=== PATIENT | male | born 1965 | race Caucasian/White ===

== ENCOUNTER 2017-12-11 22:05 | Emergency (ER) | payer BC ==
[~2017-12-11] VITALS: Ht 170.2 cm; Wt 99.8 kg
[2017-12-11 22:10] VITALS: BP 148/78
[2017-12-11] MEDS ORDERED: AUGMENTIN 500-1 EACH ORAL (22:26)
[2017-12-11 22:29] VITALS: BP 138/80
[2017-12-11 22:30] VITALS: BP 138/80
--- NOTE | 2017-12-12 02:36 | Emergency Room Report ---
History of Present Illness General Chief Complaint: Skin Rash/Abscess Source: Patient Present Illness HPI 52-year-old male presents ED complaining of redness and pain to his left middle toe. [place]. Denies any injury. Pain is throbbing, 5 out of 10, nonradiating. Denies any fevers or chills. Denies any discharge. No other aggravating relieving factors. Denies any other associated symptoms Allergies: Coded Allergies: SULFA (SULFONAMIDE ANTIBIOTICS) (Verified Allergy, Unknown, 12/11/17) Patient History Past Medical History: DM Past Surgical History: none Pertinent Family History: none Social History: Denies: smoking, alcohol use, drug use Immunizations: UTD Reviewed Nursing Documentation: PMH: Agreed; PSxH: Agreed Nursing Documentation-PMH Past Medical History: No History, Except For Hx Hypertension: Yes Hx Diabetes: Yes - Pre-Diabetic Review of Systems All Other Systems: negative except mentioned in HPI Physical Exam Vital Signs Date Time Temp Pulse Resp B/P (MAP) Pulse Ox O2 Delivery O2 Flow Rate FiO2 12/11/17 22:10 98.7 78 17 148/78 98 Room Air 98.7 Sp02 EP Interpretation: reviewed, normal General Appearance: no apparent distress, alert, GCS 15, non-toxic Head: normocephalic Eyes: bilateral eye normal inspection, bilateral eye PERRL ENT: normal ENT inspection Neck: normal inspection Respiratory: normal inspection Cardiovascular #1: normal inspection Gastrointestinal: normal inspection Rectal: deferred Genitourinary: no CVA tenderness Musculoskeletal: back normal, gait/station normal, normal range of motion, tender Neurologic: alert, oriented x3, responsive, motor strength/tone normal, sensory intact, speech normal Psychiatric: judgement/insight normal, memory normal, mood/affect normal, no suicidal/homicidal ideation Skin: other - induration/erythema L middle toe. no fluctuance. no discharge Lymphatic: normal inspection Medical Decision Making Diagnostic Impression: Primary Impression: Cellulitis of toe Qualified Codes: L03.032 - Cellulitis of left toe ER Course Hospital Course 52-year-old male presents to ED with redness, swelling to L middle toe Differential diagnoses include: Cellulitis, dermatitis, insect bite, abscess Clinical course Patient placed on stretcher. After initial history, physical exam reveals a middle aged male in no acute distress. On exam there is a site for mild erythema and induration to the L middle toe. There is no fluctuance. no discharge. Given lack of trauma, clinically consistent with a infection. We will prescribe antibiotics. Recommend close follow-up with PMD Diagnosis - cellulitis of toe stable and discharged to home with prescription for augmentin. Instructed to followup with PMD. Instructed return to ED if symptoms recur or worsen Last Vital Signs Date Time Temp Pulse Resp B/P (MAP) Pulse Ox O2 Delivery O2 Flow Rate FiO2 12/11/17 22:30 98.7 78 18 138/80 97 Room Air 98.7 Status: improved Disposition: HOME, SELF-CARE Condition: Stable Scripts Amoxicillin/Potassium Clav 500-125 Tablet* (AUGMENTIN 500-125 TABLET*) 1 Each Tablet 1 TAB ORAL THREE TIMES A DAY for 7 Days, TAB Prov: Newton Agosto MD 12/11/17 Referrals: NON PHYSICIAN (PCP) Patient Instructions: Cellulitis, [id number] Newton Agosto MD Dec 12, 2017 02:36
== END 2017-12-11 22:33 | disposition home or self-care (01) ==
LOC: EMR 22:30
DX: L03.032 Cellulitis of left toe (principal); Z88.2 Allergy status to sulfonamides; E11.9 Type 2 diabetes mellitus without complications; I10 Essential (primary) hypertension
CPT/HCPCS: 99283